=== PATIENT | female | born 1955 | race Caucasian/White ===

== ENCOUNTER → 2017-09-10 | Outpatient (CLI) | payer MEDICARE ==
[~2017-09-10] MED LIST: ARI2 PO; ARIP5TAB28 PO; CEP500 PO; CITA-128 PO; DOC100 PO; ESCI20TA38 PO; GLY5 FT; LEV75 PO; LEVO75TA68 PO; LIS10 PO; LISI-374 PO; LOR1 PO; LORA-630 PO; MELATONIN; MET500 PO; PER PO; PRA20 PO; QUET200T29 PO; SIMV-44 PO; TYLENOL PM; ZOL5 PO
[2017-09-10 12:59] LABS: PLATELET COUNT, AUTOMATED 297 K/uL (150-450)
== END ==
LOC: LAB 12:45
PROVIDERS: ATTEND Nurse Practitioner Psychiatric/Mental Health
DX: E13.65 Other specified diabetes mellitus with hyperglycemia (principal); E78.5 Hyperlipidemia, unspecified; E03.9 Hypothyroidism, unspecified
CPT/HCPCS: 36415; 82040; 82247; 82310; 82374; 82435; 82465; 82565; 82947; 83036; 83718; 84075; 84132; 84155; 84295; 84443; 84450; 84460; 84478; 84520; 85025

== ENCOUNTER 2018-11-07 16:23 | Inpatient (IN) | payer MEDICARE ==
[2018-11-07] MEDS ORDERED: ALBUTEROL/IPRATROPIUM 3 ML NEB NEB ONE (16:40)
[2018-11-07 16:54] LABS: PLATELET COUNT, AUTOMATED 325 K/uL (150-450)
--- NOTE | 2018-11-07 16:58 | ER Report ---
History and Physical Time Seen By MD: 16:45 Hx. of Stated Complaint: COUGH LASTING 2 WEEKS WITH TREATMENT, NO IMPROVEMENT, ELEVATED BLOOD SUGAR (JUS GARSIA DO) HPI/ROS CHIEF COMPLAINT: sob, cough HISTORY OF PRESENT ILLNESS: PT states she started with a dry cough november 01 and went to [facility]. Pt was told she had bronchitis. PT was given a script of doxy to start if she did not improve after a few days. PT started the doxy on the . PT not feeling any better. + vomited with coughing. PT went back to urgent care today and was found to be hypoxic as well has hyper glycemic. PT sent in for further evaluation. Pt denies chest pain. PT does state she has pain with cough and vomited with coughing. Pt has home oxygen but states it is only to be at night. never needed daily oxygen. no fevers. PT has not been taking her blood sugar. REVIEW OF SYSTEMS: Constitutional: No fever, no chills. Eyes: No discharge. ENT: No sore throat. Cardiovascular: + chest pain with cough only, no palpitations. Respiratory: + cough, + shortness of breath. Gastrointestinal: No abdominal pain, + post tussive vomiting. Genitourinary: No hematuria. Musculoskeletal: No back pain. Skin: No rashes. Neurological: No headache. (JUS GARSIA DO) Allergies: Coded Allergies: phenazopyridine (Verified Allergy, Intermediate, N/V AND FLU LIKE SYMPTOMS, 11/07/18) Sulfa (Sulfonamide Antibiotics) (Verified Allergy, Mild, VOMITING, 11/07/18) Home Meds Reported Medications Levothyroxine Sodium (LEVOTHYROXINE SODIUM) 0.125 Mg Tab, 0.125 MG PO QDAY, TAB 11/07/18 Sitagliptin Phosphate (JANUVIA) 100 Mg Tablet, 100 MG PO QDAY 11/07/18 Bupropion Hcl (WELLBUTRIN XL) 300 Mg Tab.er.24h, 300 MG PO QDAY, TAB 11/07/18 Doxepin Hcl (DOXEPIN HCL) 100 Mg Capsule, 100 MG PO BID, CAPSULE 11/07/18 Pravastatin Sodium (PRAVACHOL) 20 Mg Tablet, 80 MG PO QDAY, TAB 11/07/18 Metoprolol Succinate (METOPROLOL SUCCINATE) 100 Mg Tab.er.24h, 1 TAB PO QDAY, TAB 11/07/18 Glipizide (GLIPIZIDE) 10 Mg Tablet, 10 MG PO BID 11/07/18 Aripiprazole (ABILIFY) 2 Mg Tablet, 30 MG PO QDAY, TAB 08/10/14 Citalopram Hydrobromide (Citalopram Hbr) 20 Mg Tablet, 40 MG PO DAILY, 0 Refills 04/03/11 Metformin Hcl (Glucophage) 500 Mg Tab, 500 MG PO BIDBS, 0 Refills 04/03/11 Lisinopril (Lisinopril) 40 Mg Tablet, 40 MG PO QAM, 0 Refills 04/03/11 Discontinued Reported Medications Levothyroxine Sodium (LEVOTHYROXINE SODIUM) 75 Mcg Tablet, 75 MCG PO QDAY, TAB 11/07/18 Glyburide (GLYBURIDE) Unknown Strength Tab, FT, TAB 08/10/14 Cephalexin Monohydrate (Keflex) 500 Mg Cap, 500 MG PO Q8H, #30 TAB 0 Refills TAKE 1 TABLET BY MOUTH EVERY 8 HOURS UNTIL GONE. 04/05/11 Oxycodone/Acetaminophen (OXYCODONE/ACETAMINOPHEN 5MG/325 MG) 5 Mg/325 Mg Tab, 1 - 2 TAB PO Q4H, #30 TAB 0 Refills TAKE 1 OR 2 TABLETS BY MOUTH EVERY 4 HOURS NEEDED FOR PAIN. TAKE WITH FOOD. 04/05/11 Docusate Sodium (Colace 100 Mg) 100 Mg Cap, 100 MG PO Q4H PRN, #30 TAB 0 Refills TAKE 1 TABLET EVERY 4 HOURS NEEDED. 04/05/11 Zolpidem Tartrate (Ambien) 5 Mg Tab, 2.5 MG PO QHS, 0 Refills 04/03/11 Levothyroxine Sodium (Levothyroxine Sodium) 75 Mcg Tablet, 75 MCG PO QAM, 0 Refills 04/03/11 Pravastatin Sod (Pravachol) 20 Mg Tab, 40 MG PO QHS, 0 Refills 04/03/11 Lorazepam (Lorazepam) 0.5 Mg Tablet, 0.5 MG PO Q6-8H PRN, 0 Refills 04/03/11 Past Medical/Surgical History Pmhx: hyperlipidema, dm, hypothyroid, essential tremor, depression, htn Pshx; bladder lift, thyroid removal (LAURORA,JUS V DO) Reviewed Nurses Notes: Yes Old Medical Records Reviewed: Yes (JUS GARSIA DO) Hx Smoking: Yes Hx Alcohol Use: No (JUS GARSIA DO) Constitutional Vital Sign - Last 24 Hours 11/07/18 11/07/18 11/07/18 11/07/18 16:28 16:30 17:00 17:01 Temp 98.2 Pulse 80 160 Resp 18 B/P (MAP) 190/102 190/102 (131) 149/99 (116) Pulse Ox 77 84 O2 Delivery Room Air O2 Flow Rate 5.0 11/07/18 11/07/18 11/07/18 11/07/18 17:07 17:07 17:13 17:30 Pulse 82 84 Resp 20 20 B/P (MAP) 171/128 (142) Pulse Ox 92 O2 Delivery Oxy Mask O2 Flow Rate 5.0 11/07/18 11/07/18 11/07/18 18:00 18:30 18:41 Pulse 89 Resp 36 B/P (MAP) 150/80 (103) 164/140 (148) 158/104 (122) (MARCO BURGESS DO) Physical Exam General Appearance: The patient is alert, has no immediate need for airway protection and no signs of toxicity. Eyes: Pupils equal and round no pallor or injection, EOMI ENT: no pharyngeal erythema or exudates, Mucous membranes are moist Respiratory: There are no retractions, lungs are decreased Cardiovascular: Regular rate and rhythm. pulses are equal and symmetrical Gastrointestinal: Abdomen is soft and non tender, no masses, bowel sounds normal, no guarding, no rigidity or rebound Neurological: Cranial nerves II-XII grossly intact, no sensory or motor loss Skin: Warm and dry, no rashes. Musculoskeletal: Neck is supple non tender, no vertebral tenderness Extremities are non tender, nonswollen and have full range of motion. DIFFERENTIAL DIAGNOSIS: After history and physical exam differential diagnosis was considered for copd exacerbation, pneumonia, bronchitis, cardiac, pe (JUS GARSIA DO) Medical Decision Making Data Points Result Diagram: 11/07/18 1636 11/08/18 0547 Laboratory Hematology Test 11/07/18 16:36 Red Blood Count 4.28 M/uL (4.17-5.56) Mean Corpuscular Volume 85.6 fL (80.0-96.0) Mean Corpuscular Hemoglobin 27.8 pg (26.0-33.0) Mean Corpuscular Hemoglobin Concent 32.4 g/dL (32.0-36.0) Red Cell Distribution Width 14.3 % (11.5-14.5) Mean Platelet Volume 7.0 fL (7.2-11.1) Neutrophils (%) (Auto) 84.7 % (39.4-72.5) Lymphocytes (%) (Auto) 10.9 % (17.6-49.6) Monocytes (%) (Auto) 4.2 % (4.1-12.4) Eosinophils (%) (Auto) 0.0 % (0.4-6.7) Basophils (%) (Auto) 0.2 % (0.3-1.4) Nucleated RBC Relative Count (auto) 0.0 /100WBC Neutrophils # (Auto) 8.3 K/uL (2.0-7.4) Lymphocytes # (Auto) 1.1 K/uL (1.3-3.6) Monocytes # (Auto) 0.4 K/uL (0.3-1.0) Eosinophils # (Auto) 0.0 K/uL (0.0-0.5) Basophils # (Auto) 0.0 K/uL (0.0-0.1) Nucleated RBC Absolute Count (auto) 0.00 K/uL D-Dimer Quantitative (PE/DVT) 0.66 ug/ml (0-0.50) Total Bilirubin 0.2 mg/dl (0.2-1.3) Aspartate Amino Transf (AST/SGOT) 26 U/L (0-35) Alanine Aminotransferase (ALT/SGPT) 30 U/L (0-56) Alkaline Phosphatase 122 U/L (0-126) Troponin I < 0.012 ng/ml Total Protein 7.6 g/dl (6.3-8.2) Albumin 4.4 g/dl (3.5-5.0) Acetone, Qualitative Negative Chemistry Test 11/07/18 16:36 White Blood Count 9.8 k/uL (4.5-11.0) Red Blood Count 4.28 M/uL (4.17-5.56) Hemoglobin 11.9 g/dL (12.0-16.0) Hematocrit 36.7 % (34.0-47.0) Mean Corpuscular Volume 85.6 fL (80.0-96.0) Mean Corpuscular Hemoglobin 27.8 pg (26.0-33.0) Mean Corpuscular Hemoglobin Concent 32.4 g/dL (32.0-36.0) Red Cell Distribution Width 14.3 % (11.5-14.5) Platelet Count 325 K/uL (150-450) Mean Platelet Volume 7.0 fL (7.2-11.1) Neutrophils (%) (Auto) 84.7 % (39.4-72.5) Lymphocytes (%) (Auto) 10.9 % (17.6-49.6) Monocytes (%) (Auto) 4.2 % (4.1-12.4) Eosinophils (%) (Auto) 0.0 % (0.4-6.7) Basophils (%) (Auto) 0.2 % (0.3-1.4) Nucleated RBC Relative Count (auto) 0.0 /100WBC Neutrophils # (Auto) 8.3 K/uL (2.0-7.4) Lymphocytes # (Auto) 1.1 K/uL (1.3-3.6) Monocytes # (Auto) 0.4 K/uL (0.3-1.0) Eosinophils # (Auto) 0.0 K/uL (0.0-0.5) Basophils # (Auto) 0.0 K/uL (0.0-0.1) Nucleated RBC Absolute Count (auto) 0.00 K/uL D-Dimer Quantitative (PE/DVT) 0.66 ug/ml (0-0.50) Total Bilirubin 0.2 mg/dl (0.2-1.3) Aspartate Amino Transf (AST/SGOT) 26 U/L (0-35) Alanine Aminotransferase (ALT/SGPT) 30 U/L (0-56) Alkaline Phosphatase 122 U/L (0-126) Troponin I < 0.012 ng/ml Total Protein 7.6 g/dl (6.3-8.2) Albumin 4.4 g/dl (3.5-5.0) Acetone, Qualitative Negative Coagulation Test 11/07/18 16:36 D-Dimer Quantitative (PE/DVT) 0.66 ug/ml Toxicology Test 11/07/18 16:36 Acetone, Qualitative Negative (MARCO BURGESS DO) EKG/Imaging EKG Interpretation PT has essential tremor so ekg is limited by movement. Nsr @ 87 poor baseline (JUS GARSIA DO) Imaging X-ray: X-ray from urgent care reviewed and noted was obtained. I viewed the images myself on the PACS system. My interpretation of the images is: Normal mediastinum, no infiltrate, no effusion. The radiologist interpretation had no clinically significant variation from this interpretation. Results: CT scan of the CTA pulmonary angiogram was obtained. The results of the study are CT angiogram chest with contrast Indication: Hypoxia. Elevated d-dimer. Comparison: None available. Technique: Axial CT images are obtained through the chest after administration of 75 mL Isovue 370 IV contrast. Reformatted coronal and sagittal images were reviewed as well as coronal MIP images. One of the following dose optimization techniques was utilized in the performance of this exam: automated exposure control; adjustment of the mA and/or kV according to the patient's size; or use of an iterative reconstruction technique. Specific details can be referenced in the facility's radiology CT exam operational policy. FINDINGS: No evidence of filling defect within the pulmonary vasculature to suggest pulmo nary embolus. Heart is upper limits of normal for size. No pericardial effusion. Aorta shows no aneurysm or dissection. The mediastinum and hilar regions show no enlarged lymph nodes or abnormal density. The esophagus is mildly distended however shows no wall thickening or focal abnormality. Lungs show no consolidation, left pleural effusion, pneumothorax. Minimal right pleural fluid. No discrete nodule or focal interstitial opacity. Mild dependent atelectasis and mild scarring. The superior endplate of the T2 and T3 vertebral body shows minimal compression. No retropulsion. The bony structures show no acute fractures or aggressive bony lesions. Degenerative change seen spine. Chest wall shows no enlarged axillary lymph nodes or masses. Small hiatal hernia. Mild reflux of contrast from the right atrium into the IVC and hepatic veins. Upper abdomen is otherwise unremarkable. IMPRESSION: 1. No evidence of pulmonary embolus. 2. No acute cardiothoracic abnormality 3. Mild compression of the superior endplate of the T2 and T3 vertebral bodies without retropulsion. The age of which is indeterminate. 4. Minimal right pleural fluid. 5. Small hiatal hernia. The esophagus is mildly distended however shows no wall thickening or focal normality. This could be due to the hiatal hernia. However consideration to endoscopy to evaluate for any abnormality at the GE junction. 6. Mild reflux of contrast from the right atrium into the IVC and hepatic veins. Nonspecific but could represent cardiac decompensation. The study was read by the radiologist. I viewed the images myself on the PACS system. (MARCO BURGESS DO) ED Course/Re-evaluation Clinical Indication for ER IV: Hydration, IV Access ED Course Sent her xray for stitches to our radiologist to place in computer and read. 11/07/2018 5:23:34 pm Pts d-dimer is positive, will send for CT (JUS GARSIA DO) ED Course Care assumed at shift change with diagnostic CTA pending to rule out pulmonary embolism. CT results were noted and unremarkable for PE. Patient with a pulse ox of 77% on room air on arrival. She is requiring 5 L for saturation in the low 90s. 11/07/2018 6:42:38 pm case was discussed with Dr. Cordon hospitalist on-call, who accepts the patient for admission. Decision to Disposition Date: Nov 07, 2018 Decision to Disposition Time: 18:32 (MARCO BURGESS DO) Depart Departure Latest Vital Signs Vital Signs Date Time Temp Pulse Resp B/P (MAP) Pulse Ox O2 Delivery O2 Flow Rate FiO2 11/07/18 18:41 158/104 (122) 11/07/18 18:30 89 36 11/07/18 17:07 92 Oxy Mask 5.0 11/07/18 16:28 98.2 (MARCO BURGESS DO) Impression: Primary Impression: Hypoxia Additional Impressions: Upper respiratory infection COPD exacerbation Hyperglycemia due to type 2 diabetes mellitus Condition: Improved Disposition: Admitted from ER Referrals: [facility] (PCP) Problem Qualifiers Additional Impressions: Upper respiratory infection URI type: unspecified URI Qualified Codes: J06.9 - Acute upper respiratory infection, unspecified Hyperglycemia due to type 2 diabetes mellitus Diabetes mellitus planer off bearer insulin use: without planer off bearer use Qualified Codes: E11.65 - Type 2 diabetes mellitus with hyperglycemia JUS GARSIA DO Nov 07, 2018 16:58 MARCO BURGESS DO Nov 07, 2018 18:33
[2018-11-07] MEDS ORDERED: NS(*) 0.9% 1000 ML BAG 1,000 ML IV ONE (17:05)
[2018-11-07] MEDS ORDERED: NS(*) 0.9% 50 ML BAG 50 ML ONE (17:31)
[2018-11-07] MEDS ORDERED: IOPAMIDOL 76% 150 ML INFUS BTL 150 ML ONE (17:31)
--- NOTE | 2018-11-07 18:26 | RADIOLOGY IMAGING REPORT ---
FACILITY: [facility] [place] PATIENT NAME: Rosey Rivas : 1955 MR: [id number] V: [id number] EXAM DATE: ORDERING PHYSICIAN: JUS GARSIA TECHNOLOGIST: Location: [facility] [place] Patient: Rosey Rivas : 1955 Visit/Account:[id number] Date of Sevice: 11/07/2018 CT angiogram chest with contrast Indication: Hypoxia. Elevated d-dimer. Comparison: None available. Technique: Axial CT images are obtained through the chest after administration of 75 mL Isovue 370 IV contrast. Reformatted coronal and sagittal images were reviewed as well as coronal MIP images. One of the following dose optimization techniques was utilized in the performance of this exam: auto mated exposure control; adjustment of the mA and/or kV according to the patient's size; or use of an iterative reconstruction technique. Specific details can be referenced in the facility's radiology C T exam operational policy. FINDINGS: No evidence of filling defect within the pulmonary vasculature to suggest pulmonary embolus. Heart is upper limits of normal for size. No pericardial effusion. Aorta shows no aneurysm or dissect ion. The mediastinum and hilar regions show no enlarged lymph nodes or abnormal density. The esophagu s is mildly distended however shows no wall thickening or focal abnormality. Lungs show no consolidation, left pleural effusion, pneumothorax. Minimal right pleural fluid. No dis crete nodule or focal interstitial opacity. Mild dependent atelectasis and mild scarring. The superior endplate of the T2 and T3 vertebral body shows minimal compression. No retropulsion. The bony structures show no acute fractures or aggressive bony lesions. Degenerative change seen spine. Chest wall shows no enlarged axillary lymph nodes or masses. Small hiatal hernia. Mild reflux of contrast from the right atrium into the IVC and hepatic veins. Up per abdomen is otherwise unremarkable. IMPRESSION: 1. No evidence of pulmonary embolus. 2. No acute cardiothoracic abnormality 3. Mild compression of the superior endplate of the T2 and T3 vertebral bodies without retropulsion. The age of which is indeterminate. 4. Minimal right pleural fluid. 5. Small hiatal hernia. The esophagus is mildly distended however shows no wall thickening or focal n ormality. This could be due to the hiatal hernia. However consideration to endoscopy to evaluate for any abnormality at the Electronifie junction. 6. Mild reflux of contrast from the right atrium into the IVC and hepatic veins. Nonspecific but coul d represent cardiac decompensation. Report Dictated By: Manpreet Jacinto at 11/07/2018 6:12 PM Report E-Signed By: Manpreet Jacinto at 11/07/2018 6:21 PM [id number]
--- NOTE | 2018-11-07 18:36 | EKG ---
FACILITY: [facility] PATIENT NAME: MOOK KATZ : [id number] MR: [id number] V: [id number] EXAM DATE: ORDERING PHYSICIAN: JUS GARSIA TECHNOLOGIST: Carrie Winter Reason : sob Blood Pressure : / mmHG Vent. Rate : 087 BPM Atrial Rate : 087 BPM P-R Int : 180 ms QRS Dur : 084 ms QT Int : 402 ms P-R-T Axes : 036 051 078 degrees QTc Int : 483 ms Normal sinus rhythm Prolonged QT Electrical linterference precludes strict reading. No previous ECGs available Confirmed by JENNIFER BRAGA ([id number]) on 11/07/2018 8:38:25 PM Referred By: Confirmed By:JENNIFER BRAGA
[2018-11-07] MEDS ORDERED: LEVO75TA73 PO (19:19)
[2018-11-07] MEDS ORDERED: METO100T20 PO (19:19)
[2018-11-07] MEDS ORDERED: DOXE100C21 PO (19:19)
[2018-11-07] MEDS ORDERED: BUPR-474 PO (19:19)
[2018-11-07] MEDS ORDERED: GLIP-154 PO (19:19)
[2018-11-07] MEDS ORDERED: PRAV20TA65 PO (19:19)
[2018-11-07] MEDS ORDERED: SITA100T PO (19:19)
[2018-11-07 19:45] VITALS: BP 164/104
--- NOTE | 2018-11-07 19:45 | History & Physical ---
History of Present Illness Chief Complaint Cough and short of breath. History of Present Illness 63 yr old lady with approx. one week of harsh cough and shortness of breath. Initially seen at an urgent care facility and placed on doxycycline without much improvement. Seen back at urgent care today and found to be hypoxic and that her diabetes was out of control. Referred to ER for evaluation. Admission recommended due to non-responsive respiratory infection and diabetes.. Long history of smoking but quit 2 yrs ago. On O2 at night for documented hypoxia. CT of chest shows no infiltrate with a small right effusion. No pulmonary emb canelo. History Problems: (1) Hypertension Status: Chronic (2) Hyperlipidemia Status: Chronic (3) Hypothyroidism Status: Chronic (4) Depression Status: Chronic (5) GERD (gastroesophageal reflux disease) Status: Chronic (6) Diabetes mellitus Status: Chronic (7) Hx of thyroid cancer Status: Resolved (8) History of hysterectomy Status: Resolved (9) History of bladder suspension procedure Status: Resolved Home Meds Reported Medications Levothyroxine Sodium (LEVOTHYROXINE SODIUM) 0.125 Mg Tab, 0.125 MG PO QDAY, TAB 11/07/18 Sitagliptin Phosphate (JANUVIA) 100 Mg Tablet, 100 MG PO QDAY 11/07/18 Bupropion Hcl (WELLBUTRIN XL) 300 Mg Tab.er.24h, 300 MG PO QDAY, TAB 11/07/18 Doxepin Hcl (DOXEPIN HCL) 100 Mg Capsule, 100 MG PO BID, CAPSULE 11/07/18 Pravastatin Sodium (PRAVACHOL) 20 Mg Tablet, 80 MG PO QDAY, TAB 11/07/18 Metoprolol Succinate (METOPROLOL SUCCINATE) 100 Mg Tab.er.24h, 1 TAB PO QDAY, TAB 11/07/18 Glipizide (GLIPIZIDE) 10 Mg Tablet, 10 MG PO BID 11/07/18 Aripiprazole (ABILIFY) 2 Mg Tablet, 30 MG PO QDAY, TAB 08/10/14 Citalopram Hydrobromide (Citalopram Hbr) 20 Mg Tablet, 40 MG PO DAILY, 0 Refills 04/03/11 Metformin Hcl (Glucophage) 500 Mg Tab, 500 MG PO BIDBS, 0 Refills 04/03/11 Lisinopril (Lisinopril) 40 Mg Tablet, 40 MG PO QAM, 0 Refills 04/03/11 Discontinued Reported Medications Levothyroxine Sodium (LEVOTHYROXINE SODIUM) 75 Mcg Tablet, 75 MCG PO QDAY, TAB 11/07/18 Glyburide (GLYBURIDE) Unknown Strength Tab, FT, TAB 08/10/14 Cephalexin Monohydrate (Keflex) 500 Mg Cap, 500 MG PO Q8H, #30 TAB 0 Refills TAKE 1 TABLET BY MOUTH EVERY 8 HOURS UNTIL GONE. 04/05/11 Oxycodone/Acetaminophen (OXYCODONE/ACETAMINOPHEN 5MG/325 MG) 5 Mg/325 Mg Tab, 1 - 2 TAB PO Q4H, #30 TAB 0 Refills TAKE 1 OR 2 TABLETS BY MOUTH EVERY 4 HOURS NEEDED FOR PAIN. TAKE WITH FOOD. 04/05/11 Docusate Sodium (Colace 100 Mg) 100 Mg Cap, 100 MG PO Q4H PRN, #30 TAB 0 Refills TAKE 1 TABLET EVERY 4 HOURS NEEDED. 04/05/11 Zolpidem Tartrate (Ambien) 5 Mg Tab, 2.5 MG PO QHS, 0 Refills 04/03/11 Levothyroxine Sodium (Levothyroxine Sodium) 75 Mcg Tablet, 75 MCG PO QAM, 0 Refills 04/03/11 Pravastatin Sod (Pravachol) 20 Mg Tab, 40 MG PO QHS, 0 Refills 04/03/11 Lorazepam (Lorazepam) 0.5 Mg Tablet, 0.5 MG PO Q6-8H PRN, 0 Refills 04/03/11 Allergies: Coded Allergies: phenazopyridine (Verified Allergy, Intermediate, N/V AND FLU LIKE SYMPTOMS, 11/07/18) Sulfa (Sulfonamide Antibiotics) (Verified Allergy, Mild, VOMITING, 11/07/18 ) Hx Smoking: Yes Smoking Status: Former Smoker Exposure to Second Hand Smoke?: Yes Tobacco Used: Cigarette Hx Alcohol Use: No Review of Systems Constitutional: No Fever, No Weight Loss, No Weight Gain, No Chills, No Night Sweats Neurological: No Syncope, No Confusion, No Weakness, No Dizziness, No Slurred Speech Eyes: Other (Weakness right medical rectus) ENT: No Hearing Loss, No Sinus Congestion, No Sore Throat, No Ear Ache, No Tinnitus Cardiovascular: Other (mild left chest pain with deep breath.) Respiratory: Shortness of Breath, Cough, Wheezing Gastrointestinal: No Nausea, No Vomiting, No Diarrhea, No Dysphagia, No Constipation, No Early Satiety, No Hematemesis, No Hematochezia, No Melena, No Abdominal Pain Genitourinary: No Dysuria, No Hematuria, No Urinary Incontinence Psychiatric: Depression, Anxiety Exam Vital Signs Vital Signs Date Time Temp Pulse Resp B/P (MAP) Pulse Ox O2 Delivery O2 Flow Rate FiO2 11/07/18 19:30 85 34 ???/??? ([id number]) 91 11/07/18 17:07 Oxy Mask 5.0 11/07/18 16:28 98.2 General Appearance: Alert, Awake, No Acute Distress Eyes: Other (moderate right medial rectus weakness.) Cardiovascular: Regular Rate and Rhythm, Other (S1S2 are soft. No murmur, gallops or rubs.) Respiratory: Other (BS are idminished throughout but no wheezes or ronchi.) Chest: No Tenderness GI: Abd Soft and Non-Tender : No CVA Tenderness Extremities: Other (No edema or thigh of calf tenderness.) Psych: Alert & Oriented X3, Appropriate Mood & Affect Medical Decision Making Data Points Result Diagram: 11/07/18 1636 11/07/18 1636 Item Value Date Time D-Dimer Quantitative (PE/DVT) 0.66 ug/ml H 11/07/18 1636 Calcium Level 8.7 mg/dl 11/07/18 1636 Total Bilirubin 0.2 mg/dl 11/07/18 1636 Aspartate Amino Transf (AST/SGOT) 26 U/L 11/07/18 1636 Alanine Aminotransferase (ALT/SGPT) 30 U/L 11/07/18 1636 Alkaline Phosphatase 122 U/L 11/07/18 1636 Troponin I < 0.012 ng/ml 11/07/18 1636 Total Protein 7.6 g/dl 11/07/18 1636 Albumin 4.4 g/dl 11/07/18 1636 Acetone, Qualitative Negative 11/07/18 1636 EKG / Imaging Monitor Interpretation: Normal Sinus Rhythm Imaging CT reviewed. Pre-Admit Course ED Medications Reviewed. Assessment and Plan Problems: (1) COPD exacerbation Status: Acute Assessment & Plan: Long history of smoking but quit 2 yrs ago. Does have nocturnal hypoxia on 2 L/min. Will keep O2 sats >89%. Start rocephin 1 gm IV q 12 hours and azithromycin 500 mg IV q 24 hours. Nebs tid. (2) Diabetes mellitus Status: Chronic Assessment & Plan: Will keepp on 1800 calorie diet. Use sliding scale II insulin for coverage until acute respiratory issues are resolved. WBG ac and hs. (3) Depression Status: Chronic Assessment & Plan: Continue usual meds. (4) Hyperlipidemia Status: Chronic Assessment & Plan: Usual meds. (5) Hypothyroidism Status: Chronic Assessment & Plan: Continue levothyroxine. (6) GERD (gastroesophageal reflux disease) Status: Chronic (7) Hypertension Status: Chronic Assessment & Plan: Usual meds. (8) Hx of thyroid cancer Status: Resolved (9) History of bladder suspension procedure Status: Resolved (10) History of hysterectomy Status: Resolved Time Spent on Plan of Care: > 30 min Copies to: [facility] ; Venous Thromboembolism VTE Risk Physician Assess for VTE Risk: Yes Patient's VTE Risk: Low VTE Diagnostic Test 2 Days Prior to Admit: No Antithrombotics Is Pt On Any Antithrombotics?: No Prophylaxis Tx Contraindicated Pharmacological Contraindicati: Pt at Low Risk for VTE Mechanical Contraindications: Pt at Low Risk for VTE Exam Sepsis Risk: No Definite Risk EAGLE BRAGA MD FACP Nov 07, 2018 19:45
[2018-11-07] MEDS ORDERED: LEV125 PO (20:11)
[2018-11-07] MEDS ORDERED: NS(*) 0.9% 250 ML BAG 0 ML ONE (21:00)
[2018-11-07] MEDS ORDERED: NS(*) 0.9% 250 ML BAG 250 ML ONE (21:18)
[2018-11-07] MEDS: cefTRIAXone 1 GM VIAL IVP SCH (21:37)
[2018-11-07] MEDS: AZITHROMYCIN(*) 500 MG 500 MG in NS(*) 0.9% 250 ML BAG 250 ML IVPB SCH (21:38)
[2018-11-07] MEDS: DOXEPIN HCL 25 MG CAP PO SCH (21:39)
[2018-11-07] MEDS: LISINOPRIL 20 MG TAB PO SCH (21:39)
[2018-11-07] MEDS: INSULIN HUM LISPRO 100 UN/ML 3 ML VIAL SUBQ PRN (21:42)
[2018-11-07] MEDS: LEVALBUTEROL 0.63 MG/3 ML NEB NEB SCH (22:05)
[2018-11-08 04:04] VITALS: BP 120/70
[2018-11-08] MEDS: LEVALBUTEROL 0.63 MG/3 ML NEB NEB SCH ×3 (05:29→18:01)
[2018-11-08] MEDS: LEVOTHYROXINE SOD 0.125 MG TAB PO SCH (05:42)
[2018-11-08 07:03] VITALS: BP 132/87
[2018-11-08] MEDS: CITALOPRAM HYDROBROM 20 MG TAB PO SCH (08:18)
[2018-11-08] MEDS: LISINOPRIL 20 MG TAB PO SCH (08:18)
[2018-11-08] MEDS: METOPROLOL SUCC XL 50 MG TABCR 50 MG TAB.ER.24H PO SCH (08:18)
[2018-11-08] MEDS: INSULIN HUM LISPRO 100 UN/ML 3 ML VIAL SUBQ PRN ×4 (08:19→21:27)
[2018-11-08] MEDS ORDERED: DOXEPIN HCL 25 MG CAP PO SCH ×2 (09:00→17:00)
[2018-11-08] MEDS: ARIPiprazole 10 MG TAB PO SCH (09:39)
[2018-11-08] MEDS: cefTRIAXone 1 GM VIAL IVP SCH ×2 (09:39→21:57)
[2018-11-08] MEDS ORDERED: GUAIFENESIN/DEXTROMETHORPHAN 5 ML PO PRN (10:15)
--- NOTE | 2018-11-08 10:57 | Hospitalist Progress Note ---
Subjective Progress Notes Subjective She reports feeling some improvements. Less dyspnea. Still coughing. Physical Exam Vital Signs Date Time Temp Pulse Resp B/P (MAP) Pulse Ox O2 Delivery O2 Flow Rate FiO2 11/08/18 08:03 94 Nasal Cannula 1.0 11/08/18 07:03 97.5 73 14 132/87 (102) Intake and Output 11/08/18 07:00 Intake Total 850 ml Balance 850 ml Intake Oral 600 ml IV Total 250 ml # Voids 1 General Appearance: Alert, Awake Cardiovascular: Regular Rate and Rhythm Respiratory: Other (few scattered rhonchi/no wheezes currently) Extremities: Warm, Perfused Psych: Alert & Oriented X3 Result Diagram: 11/07/18 1636 11/08/18 0547 Monitor Interpretation: Normal Sinus Rhythm Assessment and Plan Problems: (1) COPD exacerbation Status: Acute Assessment & Plan: Long history of smoking, but quit 2 yrs ago. She does have nocturnal hypoxia and has been on 2 L/min. She has been started on IV Rocephin and azithromycin for concern of potential respiratory infection. She continues on supplemental oxygen and respiratory treatments. (2) Diabetes mellitus Status: Chronic Assessment & Plan: Will keep on ADA 1800 calorie diet. Continue glipizide and Januvia (hold metformin due to IV contrast for CT PA). Monitor glucoses. Use sliding scale insulin for coverage until acute respiratory issues are resolved. (3) Depression Status: Chronic Assessment & Plan: Continue her usual meds. (4) Hyperlipidemia Status: Chronic Assessment & Plan: Continue her pravastatin. (5) Hypothyroidism Status: Chronic Assessment & Plan: Continue levothyroxine. (6) GERD (gastroesophageal reflux disease) Status: Chronic (7) Hypertension Status: Chronic Assessment & Plan: Continue her lisinopril and metoprolol. Monitor BPs. (8) Hx of thyroid cancer Status: Resolved (9) History of bladder suspension procedure Status: Resolved (10) History of hysterectomy Status: Resolved Exam Sepsis Risk: No Definite Risk CHERRY VALDES MD Nov 08, 2018 10:57
[2018-11-08 14:31] VITALS: BP 164/113
[2018-11-08] MEDS: DOXEPIN HCL 25 MG CAP PO SCH ×2 (17:23→20:27)
[2018-11-08 19:06] VITALS: BP 159/119
[2018-11-08] MEDS: AZITHROMYCIN(*) 500 MG 500 MG in NS(*) 0.9% 250 ML BAG 250 ML IVPB SCH (20:22)
[2018-11-08] MEDS: buPROPion XL 150 MG TABCR PO SCH (20:26)
[2018-11-08] MEDS: PRAVASTATIN SOD 20 MG TAB PO SCH (20:27)
[2018-11-08 23:39] VITALS: BP 120/90
[2018-11-09] MEDS: LEVALBUTEROL 0.63 MG/3 ML NEB NEB SCH (04:51)
[2018-11-09] MEDS: LEVOTHYROXINE SOD 0.125 MG TAB PO SCH (05:30)
[2018-11-09 06:03] LABS: PLATELET COUNT, AUTOMATED 300 K/uL (150-450)
[2018-11-09] MEDS: INSULIN HUM LISPRO 100 UN/ML 3 ML VIAL SUBQ PRN ×4 (07:59→22:07)
[2018-11-09] MEDS: METOPROLOL SUCC XL 50 MG TABCR 50 MG TAB.ER.24H PO SCH (08:34)
[2018-11-09] MEDS: LISINOPRIL 20 MG TAB PO SCH (08:34)
[2018-11-09] MEDS: ARIPiprazole 10 MG TAB PO SCH (08:34)
[2018-11-09] MEDS: CITALOPRAM HYDROBROM 20 MG TAB PO SCH (08:34)
[2018-11-09] MEDS: cefTRIAXone 1 GM VIAL IVP SCH (08:36)
[2018-11-09] MEDS ORDERED: ALBUTEROL 2.5 MG/3 ML NEB NEB PRN (10:10)
--- NOTE | 2018-11-09 11:05 | Hospitalist Progress Note ---
Subjective Progress Notes Subjective She reports improvement in her cough. No concerns from staff. Physical Exam Vital Signs Date Time Temp Pulse Resp B/P (MAP) Pulse Ox O2 Delivery O2 Flow Rate FiO2 11/09/18 04:54 81 20 11/09/18 04:48 95 Nasal Cannula 2.0 11/08/18 23:39 97.8 120/90 (100) Intake and Output 11/09/18 07:00 Intake Total 1200 ml Balance 1200 ml Intake Oral 1200 ml # Voids 2 # Bowel Movements 1 General Appearance: Alert, Awake, No Acute Distress Respiratory: Clear to Auscultation (coughing with deep breathing) Extremities: No Edema Result Diagram: 11/09/18 0511/09/18 05 Monitor Interpretation: Normal Sinus Rhythm Assessment and Plan Problems: (1) COPD exacerbation Status: Acute Assessment & Plan: She presented with about a week of harsh cough and SOB with hypoxia. She failed outpatient oral steroids and doxycycline. Long history of smoking, but quit 2 yrs ago. She does have nocturnal hypoxia and has been on 2 L/min. She was started on IV Rocephin and azithromycin for concern of potential respiratory infection. Overall, her cough is improving, but still hypoxic. Will switch to oral azithromycin. Holding any further systemic steroid use because of the hyperglycemia she developed. Will add Advair and DuoNeb and switch to prn albuterol from Xopenex (more affordable). She continues on supplemental oxygen and respiratory treatments. (2) Diabetes mellitus Status: Chronic Assessment & Plan: Will keep on ADA 1800 calorie diet. Continuing glipizide and Januvia (held metformin for 48 hours due to IV contrast for CT PA, so restart tonight). Monitor glucoses. Using sliding scale insulin for coverage until acute respiratory issues are resolved. (3) Depression Status: Chronic Assessment & Plan: Continue her usual meds. (4) Hyperlipidemia Status: Chronic Assessment & Plan: Continue her pravastatin. (5) Hypothyroidism Status: Chronic Assessment & Plan: Continue levothyroxine. (6) GERD (gastroesophageal reflux disease) Status: Chronic (7) Hypertension Status: Chronic Assessment & Plan: Continue her lisinopril and metoprolol. Monitor BPs. (8) Hx of thyroid cancer Status: Resolved (9) History of bladder suspension procedure Status: Resolved (10) History of hysterectomy Status: Resolved Exam Sepsis Risk: No Definite Risk ALEXUS MORSE MD Nov 09, 2018 11:05
[2018-11-09] MEDS: SALMETEROL/FLUTIC 250/50 1 INH INH SCH ×2 (11:20→16:52)
[2018-11-09] MEDS: ALBUTEROL/IPRATROPIUM 3 ML NEB NEB SCH ×2 (11:20→16:52)
--- NOTE | 2018-11-09 11:37 | Antimicrobial Stewardship ---
Antimicrobial Stewardship Empiricly appropriate: Yes (Azithromycin + Ceftriaxone) Significant PMH: Yes (COPD) Support empiric regimen: Yes Approriate Cultures done: Yes (Blood Cx (-) to date) IV to PO Opportunity: Yes (switch to po azithromycin) Determine cumulative duration: Day 3 11/09/18 Determine standard duration: 3-5 days Comment 63 yo F with COPD, HL, GERD, HTN who presented with worsening cough, SOB and failure of outpatient steroids and doxycycline. Tmax afebrile WBC wnl Lactate 2.7-->1.7 A1C 9.4 Scr 0.8 Influenza A and B (-) CTA - no PE, no cardiothoracic abnormalities Blood Cx (-) to date Plan to continue azithromycin oral to complete 5 days, switch to oral, may need to treat for longer duration based on outpatient treatment. Plan to review cultures and follow treatment. Lolis Acevedo, PharmD, OP LOLIS ACEVEDO Nov 09, 2018 11:37
--- NOTE | 2018-11-09 12:25 | Medical Nutrition Therapy ---
Nutrition Anthropometrics Weight (Pounds): 150 Weight (Calculated Kilograms): 68.039 Srini Nutrition Score: Adequate Srini Nutrition Risk Score: 20 Dietary Referral Nutrition Risk Factors: Nutrition Risk Comment: Nutritional Diagnosis Nutritional Risk Acuity 2: Blood Glucose > 300mg/dl Nutritional Risk Acuity 3: COPD Unstable Past Medical History: COPD, T2DM, hypothyroid, hyperlipidemia GERD, Htn Nutritional Acuity: 2-Moderate Nutrition Diagnosis: Inappropriate Carb Intake Nutrition Etiology: Physiological Causes Nutrition Problem/Etiology/Sym: AEB admitting RBG 303 Energy Requirement: 1740 (25 kcal/kg) Protein Requirement: 68 (1gm/kg) Fluid Requirement: 2040 (30ml/kg) Diet Type: Calorie Controlled (1800 kcal) Nutrition Intervention: Cont diet as ordered, Encourage intake Nutrition Monitoring & Eval Nutrition Goals: Eat 75-100% Meal Nutrition Follow-Up: Good Intake RD Patient Assessment Time: [address] Assessment Type: RD Assessment Patient Nutrition Acuity: 2-Moderate Follow Up Date: November 14, 2018 Nutritional Comment: 11/09 Pt admitted for COPD exacerbation. Pt has dx of diabetes and admitted with RBG 303 and A1C 9.4. Will offer diabetic education when appropirate. Pt is recieving metformin and insulin. Pt on 1800 kcal diet and eating 76%. Current intake should meet nutr needs. Will cont to monitor and encourage intake. CHULA HERNANDEZ Nov 09, 2018 12:25
--- NOTE | 2018-11-09 15:53 | Medical Nutrition Therapy ---
Nutritional Education Nutrition Education Topic: Diabetic Nutrition Learning Readiness: Interested Teaching Methods: Discussion, Handout Response to Teaching: Verbalize understanding, Reinforcement needed Teaching Recipient: Patient Nutrition Counseling: Provided basic survival education on diet reviewing CHO foods, recommend limiting to 30-45gm CHO and provided plate method diet. Recommend pt f/u with [facility] and provided handout and contact info. Nutrition Monitoring & Eval RD Patient Assessment Time: [address] Assessment Type: RD Education Patient Nutrition Acuity: 2-Moderate Follow Up Date: November 14, 2018 Nutritional Comment: 11/09 Pt admitted for COPD exacerbation. Pt has dx of diabetes and admitted with RBG 303 and A1C 9.4. Will offer diabetic education when appropirate. Pt is recieving metformin and insulin. Pt on 1800 kcal diet and eating 76%. Current intake should meet nutr needs. Will cont to monitor and encourage intake. JULES 11/09 Provided 15 minutes diabetic diet education CHULA AMOS Nov 09, 2018 15:53
--- NOTE | 2018-11-09 17:09 | EKG ---
FACILITY: [facility] - [place] PATIENT NAME: MOOK KATZ : [id number] MR: [id number] V: [id number] EXAM DATE: ORDERING PHYSICIAN: ALEXUS MORSE TECHNOLOGIST: SANNA Winter Reason : SOB Blood Pressure : / mmHG Vent. Rate : 083 BPM Atrial Rate : 083 BPM P-R Int : 162 ms QRS Dur : 080 ms QT Int : 396 ms P-R-T Axes : 041 024 082 degrees QTc Int : 465 ms Normal sinus rhythm No ST-T abnormalities When compared with ECG of 07-NOV-2018 16:53, No significant change was found QTc wnl Confirmed by ALEXUS MORSE ([id number]) on 11/09/2018 7:12:57 PM Referred By: LITO Confirmed By:ALEXUS MORSE
[2018-11-09] MEDS: DOXEPIN HCL 25 MG CAP PO SCH ×2 (17:29→22:00)
[2018-11-09 19:44] VITALS: BP 142/85
[2018-11-09] MEDS ORDERED: AZITHROMYCIN 250 MG TAB PO SCH (21:00)
[2018-11-09] MEDS: metFORMIN HCL 500 MG TAB PO SCH (22:00)
[2018-11-09] MEDS: buPROPion XL 150 MG TABCR PO SCH (22:00)
[2018-11-09] MEDS: PRAVASTATIN SOD 20 MG TAB PO SCH (22:00)
[2018-11-09 23:33] VITALS: BP 150/92
[2018-11-10] MEDS: ALBUTEROL/IPRATROPIUM 3 ML NEB NEB SCH (05:15)
[2018-11-10] MEDS: SALMETEROL/FLUTIC 250/50 1 INH INH SCH (05:16)
[2018-11-10] MEDS: LEVOTHYROXINE SOD 0.125 MG TAB PO SCH (05:23)
[2018-11-10] MEDS: INSULIN HUM LISPRO 100 UN/ML 3 ML VIAL SUBQ PRN (08:11)
[2018-11-10] MEDS ORDERED: AZIT-18 PO (08:46)
[2018-11-10] MEDS ORDERED: ALB18R INH (08:46)
--- NOTE | 2018-11-10 08:54 | Hospitalist Depart ---
Discharge Summary Reason for Hosp/Final Diag: (1) COPD exacerbation Status: Acute Hospital Course & Plan: She did present with cough and shortness of breath. A CT scan was negative for an acute pulmonary process. She was started on empiric treatment with nebulizers and antibiotics. Her symptoms have now improved. She will discharge to complete a course of oral azithromycin. She was also started on a rescue inhaler. She was previously on night time oxygen, but will likely require continuous oxygen. (2) Diabetes mellitus Status: Chronic Hospital Course & Plan: She is on chronic treatment with metformin, glyburide, and Januvia. Her metformin was held secondary to IV contrast, but has now been restarted. (3) Depression Status: Chronic Hospital Course & Plan: She is on chronic treatment with bupropion, citalopram, and abilify. (4) Hyperlipidemia Status: Chronic Hospital Course & Plan: Continue her pravastatin. (5) Hypothyroidism Status: Chronic Hospital Course & Plan: Continue levothyroxine. (6) GERD (gastroesophageal reflux disease) Status: Chronic (7) Hypertension Status: Chronic Hospital Course & Plan: Continue her lisinopril and metoprolol. Monitor BPs. (8) Hx of thyroid cancer Status: Resolved (9) History of bladder suspension procedure Status: Resolved (10) History of hysterectomy Status: Resolved Departure Latest Vital Signs Vital Signs 11/09/18 11/10/18 11/10/18 23:33 05:17 07:15 Temp 97.4 Pulse 75 Resp 16 B/P (MAP) 150/92 (111) Pulse Ox 95 O2 Delivery Nasal Cannula O2 Flow Rate 2.0 Weight (Pounds): 150 Result Diagram: 11/09/1853011/09/18530 Condition: Improved Discharge: Home, Self Care Discharge Instructions Home Meds Active Scripts Albuterol Sulfate (VENTOLIN HFA) 18 Gm Inh, 2 PUFF INH Q4-6H PRN for SHORTNESS OF BREATH, #1 INH Prov:SHYLA WHITE DO 11/10/18 Azithromycin 250 Mg Tab (AZITHROMYCIN 250 MG TAB) 250 Mg Tablet, 250 MG PO QDAY@2100, #2 TAB Prov:SHYLA WHITE DO 11/10/18 Reported Medications Levothyroxine Sodium (LEVOTHYROXINE SODIUM) 0.125 Mg Tab, 0.125 MG PO QDAY, TAB 11/07/18 Sitagliptin Phosphate (JANUVIA) 100 Mg Tablet, 100 MG PO QDAY 11/07/18 Bupropion Hcl (WELLBUTRIN XL) 300 Mg Tab.er.24h, 300 MG PO QDAY, TAB 11/07/18 Doxepin Hcl (DOXEPIN HCL) 100 Mg Capsule, 100 MG PO BID, CAPSULE 11/07/18 Pravastatin Sodium (PRAVACHOL) 20 Mg Tablet, 80 MG PO QDAY, TAB 11/07/18 Metoprolol Succinate (METOPROLOL SUCCINATE) 100 Mg Tab.er.24h, 1 TAB PO QDAY, TAB 11/07/18 Glipizide (GLIPIZIDE) 10 Mg Tablet, 10 MG PO BID 11/07/18 Aripiprazole (ABILIFY) 2 Mg Tablet, 30 MG PO QDAY, TAB 08/10/14 Citalopram Hydrobromide (Citalopram Hbr) 20 Mg Tablet, 40 MG PO DAILY, 0 Refills 04/03/11 Metformin Hcl (Glucophage) 500 Mg Tab, 500 MG PO BIDBS, 0 Refills 04/03/11 Lisinopril (Lisinopril) 40 Mg Tablet, 40 MG PO QAM, 0 Refills 04/03/11 Discontinued Reported Medications Levothyroxine Sodium (LEVOTHYROXINE SODIUM) 75 Mcg Tablet, 75 MCG PO QDAY, TAB 11/07/18 Glyburide (GLYBURIDE) Unknown Strength Tab, FT, TAB 08/10/14 Cephalexin Monohydrate (Keflex) 500 Mg Cap, 500 MG PO Q8H, #30 TAB 0 Refills TAKE 1 TABLET BY MOUTH EVERY 8 HOURS UNTIL GONE. 04/05/11 Oxycodone/Acetaminophen (OXYCODONE/ACETAMINOPHEN 5MG/325 MG) 5 Mg/325 Mg Tab, 1 - 2 TAB PO Q4H, #30 TAB 0 Refills TAKE 1 OR 2 TABLETS BY MOUTH EVERY 4 HOURS NEEDED FOR PAIN. TAKE WITH FOOD. 04/05/11 Docusate Sodium (Colace 100 Mg) 100 Mg Cap, 100 MG PO Q4H PRN, #30 TAB 0 Refills TAKE 1 TABLET EVERY 4 HOURS NEEDED. 04/05/11 Zolpidem Tartrate (Ambien) 5 Mg Tab, 2.5 MG PO QHS, 0 Refills 04/03/11 Levothyroxine Sodium (Levothyroxine Sodium) 75 Mcg Tablet, 75 MCG PO QAM, 0 Refills 04/03/11 Pravastatin Sod (Pravachol) 20 Mg Tab, 40 MG PO QHS, 0 Refills 04/03/11 Lorazepam (Lorazepam) 0.5 Mg Tablet, 0.5 MG PO Q6-8H PRN, 0 Refills 04/03/11 Diet: Diabetic Activity: As Tolerated Copies to: EZ PONCE RN PACU ; Venous Thromboembolism Antithrombotics Is Pt On Any Antithrombotics?: No Problem Qualifiers (1) Diabetes mellitus: Diabetes mellitus type: type 2 SHYLA WHITE DO Nov 10, 2018 08:54
[2018-11-10 09:34] VITALS: BP 145/99
[2018-11-10] MEDS: CITALOPRAM HYDROBROM 20 MG TAB PO SCH (09:37)
[2018-11-10] MEDS: METOPROLOL SUCC XL 50 MG TABCR 50 MG TAB.ER.24H PO SCH (09:38)
[2018-11-10] MEDS: ARIPiprazole 10 MG TAB PO SCH (09:38)
[2018-11-10] MEDS: metFORMIN HCL 500 MG TAB PO SCH (09:38)
[2018-11-10] MEDS: LISINOPRIL 20 MG TAB PO SCH (09:38)
== END 2018-11-10 11:31 | disposition home or self-care (01) | DRG 192 ==
LOC: ER 16:36 → MED 18:58
PROVIDERS: ADMIT Family Medicine; ATTEND Family Medicine
DX: J44.1 Chronic obstructive pulmonary disease with (acute) exacerbation (principal); K21.9 Gastro-esophageal reflux disease without esophagitis; I10 Essential (primary) hypertension; R09.02 Hypoxemia; G25.0 Essential tremor; F32.9 Major depressive disorder, single episode, unspecified; E78.5 Hyperlipidemia, unspecified; E03.9 Hypothyroidism, unspecified; E11.65 Type 2 diabetes mellitus with hyperglycemia; J06.9 Acute upper respiratory infection, unspecified; Z79.84 Long term (current) use of oral hypoglycemic drugs; Z85.850 Personal history of malignant neoplasm of thyroid; Z90.710 Acquired absence of both cervix and uterus; Z88.2 Allergy status to sulfonamides; Z88.8 Allergy status to other drugs, medicaments and biological substances; Z87.891 Personal history of nicotine dependence
CPT/HCPCS: 36415; 36416; 71275; 82009; 82040; 82247; 82310; 82374; 82435; 82565; 82947; 82948; 83036; 83605; 83880; 84075; 84132; 84155; 84295; 84450; 84460; 84484; 84520; 85025; 85379; 87040; 87502; 93005; 93306; 94640; 96360; 96361; 99284; J0456; J0696; J7030; J7050; J7614; Q9967

== ENCOUNTER 2018-11-10 15:36 | Outpatient (RCR) | payer MEDICARE ==
[~2018-11-10 15:36] MED LIST changes: +ALB18R INH; +AZIT-18 PO; +BUPR-474 PO; +DOXE100C21 PO; +GLIP-154 PO; +LEV125 PO; +LEVO75TA73 PO; +METO100T20 PO; +PRAV20TA65 PO; +SITA100T PO
--- NOTE | 2018-11-11 14:35 | Transitional Care Management ---
Assessment Visit Type: Telephone Visit Spoke with: Rosey Cardiac: WNL Respiratory: WNL Except Respiratory Comment: 11/11 feels good, has used inhaler once, denies SOB or chest pain GI: Nutrition: WNL : WNL Musculoskeletal, Exercise: WNL Mobility/Falls: WNL Scheduled Follow-Up with Provi: Yes (has appt on 11/20) Questions for Future PCP Visit: need for continuous O2 or go back to night time only Following Discharge Instructio: Yes TCM Discharge Criteria Transitional Care Comment: 11/09 Visited with Mrs Rivas about her COPD- she states "I just found out I had it" I gave her info to go over this evening and we will go over her questions and help her with understanding. We also went over her diabetes and universal grinder operator also visited while I was there. She stated "I feel like I need to do better and follow diets better." 11/10 Pt read the info she she was provided with and states she has no questions at this but learned alot with the COPD booklet. States she will have Estrella Lam CONVEX GRINDER OPERATOR order the diabetic classes. 11/11 doing well since discharge, wearing oxygen at all times and taking medications as prescribed. Has appt on 11/20. Keeping track of blood sugars and writing them down, was 171 this morning. No concerns. Agrees to home visit, would prefer it on Friday. FABIENNE LANE November 11, 2018 14:35
--- NOTE | 2018-11-17 08:47 | Transitional Care Management ---
Assessment Cardiac: WNL Respiratory: WNL Except Respiratory Comment: 11/11 feels good, has used inhaler once, denies SOB or chest pain GI: Nutrition: WNL : WNL Musculoskeletal, Exercise: WNL Mobility/Falls: WNL Scheduled Follow-Up with Provi: Yes (has appt on 11/20) Questions for Future PCP Visit: need for continuous O2 or go back to night time only Following Discharge Instructio: Yes TCM Discharge Criteria Transitional Care Comment: 11/09 Visited with Mrs Rivas about her COPD- she states "I just found out I had it" I gave her info to go over this evening and we will go over her questions and help her with understanding. We also went over her diabetes and chalk tester also visited while I was there. She stated "I feel like I need to do better and follow diets better." 11/10 Pt read the info she she was provided with and states she has no questions at this but learned alot with the COPD booklet. States she will have Estrella Lam VIRTUAL OFFICE ASSISTANT order the diabetic classes. 11/11 doing well since discharge, wearing oxygen at all times and taking medications as prescribed. Has appt on 11/20. Keeping track of blood sugars and writing them down, was 171 this morning. No concerns. Agrees to home visit, would prefer it on Friday. Late entrys: on 11/13 I was unable to contact her for the scheduled home visit, I left a message. She returned the call after office hours to say that she had slept most of the day. I called on 11/14, unable to contact, message left. FABIOLA QUINTANA November 17, 2018 08:47
--- NOTE | 2018-11-17 14:10 | Transitional Care Management ---
Assessment Cardiac: WNL Respiratory: WNL Except Respiratory Comment: 11/11 feels good, has used inhaler once, denies SOB or chest pain GI: Nutrition: WNL : WNL Musculoskeletal, Exercise: WNL Mobility/Falls: WNL Scheduled Follow-Up with Provi: Yes (has appt on 11/20) Questions for Future PCP Visit: need for continuous O2 or go back to night time only Following Discharge Instructio: Yes TCM Discharge Criteria Transitional Care Comment: 11/09 Visited with Mrs Rivas about her COPD- she states "I just found out I had it" I gave her info to go over this evening and we will go over her questions and help her with understanding. We also went over her diabetes and networking engineer also visited while I was there. She stated "I feel like I need to do better and follow diets better." 11/10 Pt read the info she she was provided with and states she has no questions at this but learned alot with the COPD booklet. States she will have Estrella Lam REAL ESTATE UTILIZATION OFFICER order the diabetic classes. 11/11 doing well since discharge, wearing oxygen at all times and taking medications as prescribed. Has appt on 11/20. Keeping track of blood sugars and writing them down, was 171 this morning. No concerns. Agrees to home visit, would prefer it on Friday. Late entrys: on 11/13 I was unable to contact her for the scheduled home visit, I left a message. She returned the call after office hours to say that she had slept most of the day. I called on 11/14, unable to contact, message left. 11/17 Left message. FABIOLA QUINTANA November 17, 2018 14:10
--- NOTE | 2018-11-21 10:48 | Transitional Care Management ---
Assessment Visit Type: Telephone Visit Cardiac: WNL Respiratory: WNL Except Respiratory Comment: 11/11 feels good, has used inhaler once, denies SOB or chest pain 11/21 using inhaler 1-2 x a day. Instruct that having to use it more often and having s/s of exacerbation means call to PCP. Still on 2 L all the time. Akash will be repeating hs study for insurance but she realizes noc requirement may be different now too as baseline was hs use only before hospitalization. GI: Nutrition: WNL GI Comment: 11/21 states she is "watching diet adn avoiding sugar". wants to do DM clinic/classes. gave her number for clinic and will ask PCP at next visit. BS 150-200 and were previously up to 500. keeping log and was happy last noc was 131. : WNL Musculoskeletal, Exercise: WNL Mobility/Falls: WNL Feeling of Well Being: WNL Feeling of Well Being Comment: 11/21 feels better since dc and taking care of herself more Scheduled Follow-Up with Provi: Yes (has appt on 11/20 and early December) Questions for Future PCP Visit: 11/11 need for continuous O2 or go back to night time only 11/21 DM classes Following Discharge Instructio: Yes TCM Discharge Criteria Medication Knowledge: 11/21 has completed atb. Kalinanatpatty ordered , "dont remember what thats for". Reminded her its for a cough Disease Management/Concern/Wha: 11/21 COPD Red/Yellow Flags: 11/21 COPD Transitional Care Comment: 11/09 Visited with Mrs Rivas about her COPD- she states "I just found out I had it" I gave her info to go over this evening and we will go over her questions and help her with understanding. We also went over her diabetes and rn baby also visited while I was there. She stated "I feel like I need to do better and follow diets better." 11/10 Pt read the info she she was provided with and states she has no questions at this but learned alot with the COPD booklet. States she will have Estrella Lam SURFACE ROOM SHOP OPTICIAN order the diabetic classes. 11/11 doing well since discharge, wearing oxygen at all times and taking medications as prescribed. Has appt on 11/20. Keeping track of blood sugars and writing them down, was 171 this morning. No concerns. Agrees to home visit, would prefer it on Friday. Late entrys: on 11/13 I was unable to contact her for the scheduled home visit, I left a message. She returned the call after office hours to say that she had slept most of the day. I called on 11/14, unable to contact, message left. 11/17 Left message. 11/21 Had f/u with PCP; ordered benzonate and sleep study overnoc home. Wants to do better with DM management and will pursue DM classes/instruction. Doing BS and instruct that hi read could be due toinfection . REminded of s.e. of hi bs and she wants to avoid this. Has 10 children and 33 grands; Mothers day tomorrow. ZULMA VALENTINE November 21, 2018 10:48
--- NOTE | 2018-11-30 10:23 | Transitional Care Management ---
Assessment Cardiac: WNL Respiratory: WNL Except Respiratory Comment: 11/11 feels good, has used inhaler once, denies SOB or chest pain 11/21 using inhaler 1-2 x a day. Instruct that having to use it more often and having s/s of exacerbation means call to PCP. Still on 2 L all the time. Akash will be repeating hs study for insurance but she realizes noc requirement may be different now too as baseline was hs use only before hospitalization. GI: Nutrition: WNL GI Comment: 11/21 states she is "watching diet adn avoiding sugar". wants to do DM clinic/classes. gave her number for clinic and will ask PCP at next visit. BS 150-200 and were previously up to 500. keeping log and was happy last noc was 131. : WNL Musculoskeletal, Exercise: WNL Mobility/Falls: WNL Feeling of Well Being: WNL Feeling of Well Being Comment: 11/21 feels better since dc and taking care of herself more Scheduled Follow-Up with Provi: Yes (has appt on 11/20 and early December) Questions for Future PCP Visit: 11/11 need for continuous O2 or go back to night time only 11/21 DM classes Following Discharge Instructio: Yes TCM Discharge Criteria Medication Knowledge: 11/21 has completed atb. Kalinanatpatty ordered , "dont remember what thats for". Reminded her its for a cough Disease Management/Concern/Wha: 11/21 COPD Red/Yellow Flags: 11/21 COPD Transitional Care Comment: 11/09 Visited with Mrs Rivas about her COPD- she states "I just found out I had it" I gave her info to go over this evening and we will go over her questions and help her with understanding. We also went over her diabetes and horse racing analyst also visited while I was there. She stated "I feel like I need to do better and follow diets better." 11/10 Pt read the info she she was provided with and states she has no questions at this but learned alot with the COPD booklet. States she will have Estrella Lam FABRICATION SUPERVISOR order the diabetic classes. 11/11 doing well since discharge, wearing oxygen at all times and taking medications as prescribed. Has appt on 11/20. Keeping track of blood sugars and writing them down, was 171 this morning. No concerns. Agrees to home visit, would prefer it on Friday. Late entrys: on 11/13 I was unable to contact her for the scheduled home visit, I left a message. She returned the call after office hours to say that she had slept most of the day. I called on 11/14, unable to contact, message left. 11/17 Left message. 11/21 Had f/u with PCP; ordered benzonate and sleep study overnoc home. Wants to do better with DM management and will pursue DM classes/instruction. Doing BS and instruct that hi read could be due toinfection . REminded of s.e. of hi bs and she wants to avoid this. Has 10 children and 33 grands; Mothers day tomorrow. 11/30 unable to contact, voicemail left SEPTEMBERFABIENNE November 30, 2018 10:23
--- NOTE | 2018-12-01 17:17 | Transitional Care Management ---
Assessment Visit Type: Telephone Visit (Janet) Cardiac: WNL Respiratory: WNL Except Respiratory Comment: 11/11 feels good, has used inhaler once, denies SOB or chest pain 11/21 using inhaler 1-2 x a day. Instruct that having to use it more often and having s/s of exacerbation means call to PCP. Still on 2 L all the time. Akash will be repeating hs study for insurance but she realizes noc requirement may be different now too as baseline was hs use only before hospitalization. 12/01It seems to be doing better. I have been in [facility] the pas couple of weeks as my has had several surgeries. GI: Nutrition: WNL GI Comment: 11/21 states she is "watching diet adn avoiding sugar". wants to do DM clinic/classes. gave her number for clinic and will ask PCP at next visit. BS 150-200 and were previously up to 500. keeping log and was happy last noc was 131. 12/01 Bs have been doing better. "I have had some below 120 but some up to 150. I don't do sugar and have been trying hard to cur down on carbs." : WNL Musculoskeletal, Exercise: WNL Mobility/Falls: WNL Feeling of Well Being: WNL Feeling of Well Being Comment: 11/21 feels better since dc and taking care of herself more Scheduled Follow-Up with Provi: Yes (has appt on 11/20 and early December) Questions for Future PCP Visit: 11/11 need for continuous O2 or go back to night time only 11/21 DM classes Following Discharge Instructio: Yes TCM Discharge Criteria Medication Knowledge: 11/21 has completed atb. Kandace ordered , "dont remember what thats for". Reminded her its for a cough Disease Management/Concern/Wha: 11/21 COPD Red/Yellow Flags: 11/21 COPD Transitional Care Comment: 11/09 Visited with Mrs Rivas about her COPD- she states "I just found out I had it" I gave her info to go over this evening and we will go over her questions and help her with understanding. We also went over her diabetes and computer aide also visited while I was there. She stated "I feel like I need to do better and follow diets better." 11/10 Pt read the info she she was provided with and states she has no questions at this but learned alot with the COPD booklet. States she will have Ez Ponce HEALTH INFORMATION PROVIDER order the diabetic classes. 11/11 doing well since discharge, wearing oxygen at all times and taking medications as prescribed. Has appt on 11/20. Keeping track of blood sugars and writing them down, was 171 this morning. No concerns. Agrees to home visit, would prefer it on Friday. Late entrys: on 11/13 I was unable to contact her for the scheduled home visit, I left a message. She returned the call after office hours to say that she had slept most of the day. I called on 11/14, unable to contact, message left. 11/17 Left message. 11/21 Had f/u with PCP; ordered benzonate and sleep study overnoc home. Wants to do better with DM management and will pursue DM classes/instruction. Doing BS and instruct that hi read could be due toinfection . REminded of s.e. of hi bs and she wants to avoid this. Has 10 children and 33 grands; Mothers day tomorrow. 11/30 unable to contact, voicemail left4 12/01 "I'm feeling better, but my has been in hspital here in [facility] and it has been difficult, but we hope he will go home in the next day or so._it will certainly make things better." Copies to: EZ PONCE ; ANDRE LEE December 01, 2018 17:17
--- NOTE | 2018-12-11 13:34 | Transitional Care Management ---
Assessment Cardiac: WNL Respiratory: WNL Except Respiratory Comment: 11/11 feels good, has used inhaler once, denies SOB or chest pain 11/21 using inhaler 1-2 x a day. Instruct that having to use it more often and having s/s of exacerbation means call to PCP. Still on 2 L all the time. Akash will be repeating hs study for insurance but she realizes noc requirement may be different now too as baseline was hs use only before hospitalization. 12/01It seems to be doing better. I have been in [facility] the pas couple of weeks as my has had several surgeries. GI: Nutrition: WNL GI Comment: 11/21 states she is "watching diet adn avoiding sugar". wants to do DM clinic/classes. gave her number for clinic and will ask PCP at next visit. BS 150-200 and were previously up to 500. keeping log and was happy last noc was 131. 12/01 Bs have been doing better. "I have had some below 120 but some up to 150. I don't do sugar and have been trying hard to cur down on carbs." : WNL Musculoskeletal, Exercise: WNL Mobility/Falls: WNL Feeling of Well Being: WNL Feeling of Well Being Comment: 11/21 feels better since dc and taking care of herself more Scheduled Follow-Up with Provi: Yes (has appt on 11/20 and early December) Questions for Future PCP Visit: 11/11 need for continuous O2 or go back to night time only 11/21 DM classes Following Discharge Instructio: Yes TCM Discharge Criteria Medication Knowledge: 11/21 has completed atb. Kalinanate ordered , "dont remember what thats for". Reminded her its for a cough Disease Management/Concern/Wha: 11/21 COPD Red/Yellow Flags: 11/21 COPD Transitional Care Comment: 11/09 Visited with Mrs Rivas about her COPD- she states "I just found out I had it" I gave her info to go over this evening and we will go over her questions and help her with understanding. We also went over her diabetes and cloth handler also visited while I was there. She stated "I feel like I need to do better and follow diets better." 11/10 Pt read the info she she was provided with and states she has no questions at this but learned alot with the COPD booklet. States she will have Estrella Genaro SEAFOOD MANAGER order the diabetic classes. 11/11 doing well since discharge, wearing oxygen at all times and taking medications as prescribed. Has appt on 11/20. Keeping track of blood sugars and writing them down, was 171 this morning. No concerns. Agrees to home visit, would prefer it on Friday. Late entrys: on 11/13 I was unable to contact her for the scheduled home visit, I left a message. She returned the call after office hours to say that she had slept most of the day. I called on 11/14, unable to contact, message left. 11/17 Left message. 11/21 Had f/u with PCP; ordered benzonate and sleep study overnoc home. Wants to do better with DM management and will pursue DM classes/instruction. Doing BS and instruct that hi read could be due toinfection . REminded of s.e. of hi bs and she wants to avoid this. Has 10 children and 33 grands; Mothers day tomorrow. 11/30 unable to contact, voicemail left4 12/01 "I'm feeling better, but my has been in hspital here in [facility] and it has been difficult, but we hope he will go home in the next day or so._it will certainly make things better." 12/11 unable to contact [address] December 11, 2018 13:33
--- NOTE | 2018-12-12 13:29 | Transitional Care Management ---
Assessment Visit Type: Telephone Visit (12/12 Janet) Cardiac: WNL Respiratory: WNL Except Respiratory Comment: 11/11 feels good, has used inhaler once, denies SOB or chest pain 11/21 using inhaler 1-2 x a day. Instruct that having to use it more often and having s/s of exacerbation means call to PCP. Still on 2 L all the time. Akash will be repeating hs study for insurance but she realizes noc requirement may be different now too as baseline was hs use only before hospitalization. 12/01It seems to be doing better. I have been in [facility] the past couple of weeks as my has had several surgeries. 12/12 I am doing better. Using O2 at HS. "I'm in ?[place] now so have it found it a litte esier to breath, but I will be home Friday" GI: Nutrition: WNL GI Comment: 11/21 states she is "watching diet adn avoiding sugar". wants to do DM clinic/classes. gave her number for clinic and will ask PCP at next visit. BS 150-200 and were previously up to 500. keeping log and was happy last noc was 131. 12/01 Bs have been doing better. "I have had some below 120 but some up to 150. I don't do sugar and have been trying hard to cut down on carbs." 12/12 BS are still running a little high around 140-15- so Estrella is going to do some more labs this month and see what I need to do" : WNL Musculoskeletal, Exercise: WNL Mobility/Falls: WNL Feeling of Well Being: WNL Feeling of Well Being Comment: 11/21 feels better since dc and taking care of herself more Scheduled Follow-Up with Provi: Yes (has appt on 11/20 and early December) Questions for Future PCP Visit: 11/11 need for continuous O2 or go back to night time only 11/21 DM classes 12/12 Have not done anything about the classes as I've been in [facility] with my but I should be home this month and will ask Estrella next time I see her to order it. Following Discharge Instructio: Yes TCM Discharge Criteria Medication Knowledge: 11/21 has completed atb. Benzonate ordered , "dont remember what thats for". Reminded her its for a cough Disease Management/Concern/Wha: 11/21 COPD Red/Yellow Flags: 11/21 COPD Transitional Care Comment: 11/09 Visited with Mrs Rivas about her COPD- she states "I just found out I had it" I gave her info to go over this evening and we will go over her questions and help her with understanding. We also went over her diabetes and data modeling architect also visited while I was there. She stated "I feel like I need to do better and follow diets better." 11/10 Pt read the info she she was provided with and states she has no questions at this but learned alot with the COPD booklet. States she will have Estrella Lam NURSING TECHN order the diabetic classes. 11/11 doing well since discharge, wearing oxygen at all times and taking medications as prescribed. Has appt on 11/20. Keeping track of blood sugars and writing them down, was 171 this morning. No concerns. Agrees to home visit, would prefer it on Friday. Late entrys: on 11/13 I was unable to contact her for the scheduled home visit, I left a message. She returned the call after office hours to say that she had slept most of the day. I called on 11/14, unable to contact, message left. 11/17 Left message. 11/21 Had f/u with PCP; ordered benzonate and sleep study overnoc home. Wants to do better with DM management and will pursue DM classes/instruction. Doing BS and instruct that hi read could be due toinfection . REminded of s.e. of hi bs and she wants to avoid this. Has 10 children and 33 grands; Mothers day tomorrow. 11/30 unable to contact, voicemail left4 12/01 "I'm feeling better, but my has been in hspital here in [facility] and it has been difficult, but we hope he will go home in the next day or so._it will certainly make things better." 12/11 unable to contact 12/12Improving but hope to do better since my is starting to feel better. I will get scheduled to see Estrella for appt once I have my blood drawn in December. I will call her in a couple of weeks to FU. ANDRE LEE Dec 12, 2018 13:29
--- NOTE | 2018-12-23 14:20 | Transitional Care Management ---
Assessment Cardiac: WNL Respiratory: WNL Except Respiratory Comment: 11/11 feels good, has used inhaler once, denies SOB or chest pain 11/21 using inhaler 1-2 x a day. Instruct that having to use it more often and having s/s of exacerbation means call to PCP. Still on 2 L all the time. Akash will be repeating hs study for insurance but she realizes noc requirement may be different now too as baseline was hs use only before hospitalization. 12/01It seems to be doing better. I have been in [facility] the past couple of weeks as my has had several surgeries. 12/12 I am doing better. Using O2 at HS. "I'm in ?[place] now so have it found it a litte esier to breath, but I will be home Friday" GI: Nutrition: WNL GI Comment: 11/21 states she is "watching diet adn avoiding sugar". wants to do DM clinic/classes. gave her number for clinic and will ask PCP at next visit. BS 150-200 and were previously up to 500. keeping log and was happy last noc was 131. 12/01 Bs have been doing better. "I have had some below 120 but some up to 150. I don't do sugar and have been trying hard to cut down on carbs." 12/12 BS are still running a little high around 140-15- so Estrella is going to do some more labs this month and see what I need to do" : WNL Musculoskeletal, Exercise: WNL Mobility/Falls: WNL Feeling of Well Being: WNL Feeling of Well Being Comment: 11/21 feels better since dc and taking care of herself more Scheduled Follow-Up with Provi: Yes (has appt on 11/20 and early December) Questions for Future PCP Visit: 11/11 need for continuous O2 or go back to night time only 11/21 DM classes 12/12 Have not done anything about the classes as I've been in [facility] with my but I should be home this month and will ask Estrella next time I see her to order it. Following Discharge Instructio: Yes TCM Discharge Criteria Medication Knowledge: 11/21 has completed atb. Benzonate ordered , "dont remember what thats for". Reminded her its for a cough Disease Management/Concern/Wha: 11/21 COPD Red/Yellow Flags: 11/21 COPD Transitional Care Comment: 11/09 Visited with Mrs Rivas about her COPD- she states "I just found out I had it" I gave her info to go over this evening and we will go over her questions and help her with understanding. We also went over her diabetes and gear cutting machine set up operator also visited while I was there. She stated "I feel like I need to do better and follow diets better." 11/10 Pt read the info she she was provided with and states she has no questions at this but learned alot with the COPD booklet. States she will have Estrella Lam UNIVERSAL GRINDER TOOL order the diabetic classes. 11/11 doing well since discharge, wearing oxygen at all times and taking medications as prescribed. Has appt on 11/20. Keeping track of blood sugars and writing them down, was 171 this morning. No concerns. Agrees to home visit, would prefer it on Friday. Late entrys: on 11/13 I was unable to contact her for the scheduled home visit, I left a message. She returned the call after office hours to say that she had slept most of the day. I called on 11/14, unable to contact, message left. 11/17 Left message. 11/21 Had f/u with PCP; ordered benzonate and sleep study overnoc home. Wants to do better with DM management and will pursue DM classes/instruction. Doing BS and instruct that hi read could be due toinfection . REminded of s.e. of hi bs and she wants to avoid this. Has 10 children and 33 grands; Mothers day tomorrow. 11/30 unable to contact, voicemail left4 12/01 "I'm feeling better, but my has been in hspital here in [facility] and it has been difficult, but we hope he will go home in the next day or so._it will certainly make things better." 12/11 unable to contact 12/12Improving but hope to do better since my is starting to feel better. I will get scheduled to see Estrella for appt once I have my blood drawn in December. I will call her in a couple of weeks to FU. 12/23 Unable to contact-will DC from ANDRE Thomas Dec 23, 2018 14:20
== END 2019-03-05 ==
LOC: TCM 15:36
PROVIDERS: ATTEND Nurse Practitioner
DX: Z02.9 Encounter for administrative examinations, unspecified (principal)